=== PATIENT | male | born 1950 | race Caucasian/White ===

== ENCOUNTER 2018-04-20 09:02 | Emergency (ER) | payer OTHER ==
[2018-04-20] MEDS ORDERED: ASPIRIN 81 MG CHEWABLE TAB PO ONE (09:12)
[2018-04-20] MEDS ORDERED: NS 500 ML IV ONE (09:12)
[2018-04-20] MEDS ORDERED: ONDANSETRON 4 MG/2 ML VIAL IVP ONE (09:12)
[2018-04-20 09:35] LABS: PLATELET COUNT 226 10^3/uL (150-400)
[2018-04-20 09:41] LABS: INR 1.05 (0.83-1.16); PROTIME(PATIENT) 13.9 SEC (12.0-15.0)
[2018-04-20] MEDS ORDERED: PANTOPRAZOLE SODIUM 40 MG VIAL IVP ONE (10:17)
[2018-04-20] MEDS ORDERED: FAMOTIDINE 20 MG/NACL 50 ML IV ONE (10:17)
--- NOTE | 2018-04-20 10:25 | EDPHY ---
H & P Time Seen by Provider: 04/20/18 09:12 HPI/ROS: HPI Heartburn, chest discomfort. 68-year-old male by private vehicle with his . This patient reports that his father on Monday at jail. This was expected. He states however that he has been under a fair amount of stress since this time. He reports he developed nausea Monday evening. This was then followed by GERD like sensation with a sensation of burning in his mid chest emanating from his epigastric area. This has been associated with chest discomfort. He reports that this had persisted through the week. He called his primary care physician today to get an appointment and was told to come to the emergency department for evaluation. He is now feeling better. He does state that he has a low level of discomfort in his chest. Other than age she does not have any cardiac risk factors. Specifically no history of diabetes, hyperlipidemia, hypertension. He is not a smoker. No significant family history. He is not obese. ROS: Constitutional: No fever, no chills. No weakness. Eyes: No discharge. No changes in vision. ENT: No sore throat. No nasal congestion or rhinorrhea. Respiratory: No cough. No shortness of breath. Cardiac: As above, no palpitations. Gastrointestinal: No abdominal pain, no vomiting, no diarrhea. As above. Genitourinary: No hematuria. No dysuria or increased frequency with urination. Musculoskeletal: No back pain. No neck pain. No myalgias or arthralgias. Skin: No rashes. Neurological: No headache. No focal weakness or altered sensation. Past medical history: Sleep apnea. Social history: Nonsmoker. No alcohol. Here with his . Physical Exam: General Appearance: Alert, no distress. This patient is responding to questions appropriately and in full sentences. This patient appears well- hydrated and well-nourished. Eyes: Pupils equal and round no pallor or injection. No lid edema, erythema or injection. Respiratory: There are no retractions, lungs are clear to auscultation with good air movement bilaterally. Cardiovascular: Regular rate and rhythm. No murmur. Gastrointestinal: Abdomen is soft and nontender, no masses, bowel sounds normal. No focal tenderness at McBurney's point. No Brooks sign. Neurological: Motor sensory function is grossly intact. Cranial nerves are normal. Gait is normal. Skin: Warm and dry, no rashes. Musculoskeletal: Neck is supple and nontender. Extremities are symmetrical. All joints range without pain or impingement. Psychiatric: No agitation. No depression. Database: EKG: EKG time is 9:13 a.m.; EKG shows a narrow complex normal sinus rhythm with a ventricular rate of 80. Some AR Depression noted in lead 2. The AR, QRS, QT intervals are within normal limits. There are no ST-T wave changes indicative of ischemic or injury pattern. No evidence of right heart strain. Interpreted by me. Imaging: Chest x-ray AP portable; the cardiac mediastinal silhouette is unremarkable. No evidence of infiltrate or pneumothorax. No acute cardiopulmonary disease process noted. Interpreted by me. Procedures: Emergency department course: Triage vital signs reviewed and are normal. IV was placed. EKG obtained and reviewed by myself. Heart score is is 3. Patient given IV Pepcid and Protonix for GERD. 10:25 a.m., patient re-evaluated, resting comfortably at this time. He denies any chest pain or significant chest discomfort. Results of his emergency department workup were discussed with him and his . I discussed his heart score of 3. I discussed the interpretation relevance of this. I did offer him admission for observation and further testing overnight. He declines this. The patient competently engages in shared decision making. They demonstrate capacitance to make decisions. He feels comfortable going home. I will have him follow up with Dr. Albertina Sousa at [facility] on Monday for re-evaluation. He lives near the emergency department and can return to the emergency department should his chest discomfort/pain return. Follow-up and return to emergency department precautions were thoroughly reviewed with him and his . All of their questions were answered. The patient was discharged home in good condition with his . Differential Diagnosis: The differential diagnosis on this patient includes but is not limited to GERD, stress reaction, pericarditis. Acute coronary syndrome, pulmonary embolism, pericarditis, aortic dissection. This represents a partial list of diagnoses considered. These considerations are based on history, physical exam, past history, reassessment and diagnostic testing. Smoking Status: Never smoked Constitutional: Initial Vital Signs Temperature (C) 37 C 04/20/18 09:06 Heart Rate 73 04/20/18 09:06 Respiratory Rate 18 04/20/18 09:06 Blood Pressure 129/88 H 04/20/18 09:06 O2 Sat (%) 94 04/20/18 09:06 O2 Delivery Mode Room Air Allergies/Adverse Reactions: No Known Allergies Allergy (Unverified 04/20/18 09:04) Home Medications: Medication Instructions Recorded Ambien 04/20/18 Aspirin 81mg (*) 04/20/18 Ativan 04/20/18 Pantoprazole Sodium [Protonix] 40 mg PO DAILY #30 tab 04/20/18 Viagra 04/20/18 Medical Decision Making - Diagnostics Imaging Results: Imaging Impressions Chest X-Ray 04/20/18 09:12 Impression: Nothing acute identified. - Data Points Laboratory Results: Laboratory Results 04/20/18 09:21 04/20/18 09:21 04/20/18 04/20/18 04/20/18 09:21 09:21 09:21 WBC 12.05 10^3/uL H 10^3/uL (3.80-9.50) RBC 5.10 10^6/uL 10^6/uL (4.40-6.38) Hgb 16.9 g/dL g/dL (13.7-17.5) Hct 47.3 % % (40.0-51.0) MCV 92.7 fL fL (81.5-99.8) MCH 33.1 pg pg (27.9-34.1) MCHC 35.7 g/dL g/dL (32.4-36.7) RDW 12.9 % % (11.5-15.2) Plt Count 226 10^3/uL 10^3/uL (150-400) MPV 8.5 fL L fL (8.7-11.7) Neut % (Auto) 80.5 % H % (39.3-74.2) Lymph % (Auto) 10.1 % L % (15.0-45.0) [place] % (Auto) 8.3 % % (4.5-13.0) Eos % (Auto) 0.7 % % (0.6-7.6) Baso % (Auto) 0.2 % L % (0.3-1.7) Nucleat RBC Rel Count 0.0 % % (0.0-0.2) Absolute Neuts (auto) 9.68 10^3/uL H 10^3/uL (1.70-6.50) Absolute Lymphs (auto) 1.22 10^3/uL 10^3/uL (1.00-3.00) Absolute Monos (auto) 1.00 10^3/uL H 10^3/uL (0.30-0.80) Absolute Eos (auto) 0.09 10^3/uL 10^3/uL (0.03-0.40) Absolute Basos (auto) 0.03 10^3/uL 10^3/uL (0.02-0.10) Absolute Nucleated RBC 0.00 10^3/uL 10^3/uL (0-0.01) Immature Gran % 0.2 % % (0.0-1.1) Immature Gran # 0.03 10^3/uL 10^3/uL (0.00-0.10) PT 13.9 SEC SEC (12.0-15.0) INR 1.05 (0.83-1.16) APTT 26.2 SEC SEC (23.0-38.0) Sodium 134 mEq/L L mEq/L (135-145) Potassium 4.1 mEq/L mEq/L (3.3-5.0) Chloride 101 mEq/L mEq/L (97-110) Carbon Dioxide 24 mEq/l mEq/l (22-31) Anion Gap 9 mEq/L mEq/L (8-16) BUN 14 mg/dL mg/dL (7-23) Creatinine 0.7 mg/dL mg/dL (0.7-1.3) Estimated GFR > 60 Glucose 99 mg/dL mg/dL (70-100) Calcium 9.3 mg/dL mg/dL (8.5-10.4) Total Bilirubin 1.2 mg/dL mg/dL (0.1-1.4) Conjugated Bilirubin 0.1 mg/dL mg/dL (0.0-0.5) Unconjugated Bilirubin 1.1 mg/dL mg/dL (0.0-1.1) AST 23 IU/L IU/L (17-59) ALT 40 IU/L IU/L (21-72) Alkaline Phosphatase 45 IU/L IU/L (38-126) POC Troponin I Total Protein 6.5 g/dL g/dL (6.3-8.2) Albumin 4.0 g/dL g/dL (3.5-5.0) Lipase 113 IU/L IU/L (23-300) 04/20/18 09:19 WBC RBC Hgb Hct MCV MCH MCHC RDW Plt Count MPV Neut % (Auto) Lymph % (Auto) [place] % (Auto) Eos % (Auto) Baso % (Auto) Nucleat RBC Rel Count Absolute Neuts (auto) Absolute Lymphs (auto) Absolute Monos (auto) Absolute Eos (auto) Absolute Basos (auto) Absolute Nucleated RBC Immature Gran % Immature Gran # PT INR APTT Sodium Potassium Chloride Carbon Dioxide Anion Gap BUN Creatinine Estimated GFR Glucose Calcium Total Bilirubin Conjugated Bilirubin Unconjugated Bilirubin AST ALT Alkaline Phosphatase POC Troponin I 0.00 ng/mL ng/mL (0.00-0.08) Total Protein Albumin Lipase Medications Given: Discontinued Medications Aspirin (Aspirin) 324 mg PO EDNOW ONE Stop: 04/20/18 09:13 Last Admin: 04/20/18 09:32 Dose: 324 mg Sodium Chloride (Ns) 500 mls @ 1,000 mls/hr IV EDNOW ONE PRN Reason: Protocol Stop: 04/20/18 09:41 Last Admin: 04/20/18 09:32 Dose: 500 mls Ondansetron HCl (Zofran) 4 mg IVP EDNOW ONE Stop: 04/20/18 09:13 Last Admin: 04/20/18 09:31 Dose: 4 mg Point of Care Test Results: Chemistry 04/20/18 09:19 POC Troponin I 0.00 ng/mL ng/mL (0.00-0.08) Departure - Departure Disposition: Home, Routine, Self-Care Clinical Impression: Chest pain, GERD (gastroesophageal reflux disease) Condition: Good Instructions: Gastroesophageal Reflux Disease (ED), Chest Pain (ED) Additional Instructions: Read and follow provided instructions. Follow-up with [facility], our cardiology group and Dr. Albertina Sousa or 1 of her partners on Monday for re-evaluation as discussed. Call their office this afternoon for appointment time. Explained this is for an emergency department follow-up and that your seen in the emergency department for chest discomfort. Take medication as prescribed for acid reflux. Return to the emergency department for worsening symptoms, chest pain, shortness of breath or other serious concerns. Referrals: Albertina Sousa MD [Medical Doctor] - As per Instructions Prescriptions: Pantoprazole Sodium [Protonix] 40 mg PO DAILY #30 tab
[2018-04-20 10:37] VITALS: BP 136/86
--- NOTE | 2018-04-20 15:00 | CPEKG ---
Test Reason : OPEN Blood Pressure : / mmHG Vent. Rate : 080 BPM Atrial Rate : 080 BPM P-R Int : 167 ms QRS Dur : 095 ms QT Int : 361 ms P-R-T Axes : 065 056 062 degrees QTc Int : 417 ms Sinus rhythm Minimal ST elevation, anterior leads Confirmed by Starr Wheat ([id number] on 04/20/2018 2:59:50 PM Referred By: Confirmed By:Starr Wheat
== END 2018-04-20 10:51 | disposition home or self-care (01) ==
DX: K21.9 Gastro-esophageal reflux disease without esophagitis (principal); R07.9 Chest pain, unspecified
CPT/HCPCS: 71045; 93005; 96374; 96375; 99285; J2405; 84484-PO

== ENCOUNTER → 2018-09-06 | Outpatient (CLI) | payer OTHER | LOC: FIMAGING 06:57 | PROVIDERS: ATTEND Internal Medicine | DX: M54.30 Sciatica, unspecified side (principal); M51.26 Other intervertebral disc displacement, lumbar region ==

== ENCOUNTER → 2018-10-03 | Outpatient (CLI) | payer OTHER | LOC: FIMAGING 09:31 | PROVIDERS: ATTEND Neurological Surgery | DX: M54.16 Radiculopathy, lumbar region (principal); M51.27 Other intervertebral disc displacement, lumbosacral region; M48.062 Spinal stenosis, lumbar region with neurogenic claudication ==